=== PATIENT | female | born 1955 | race Caucasian/White ===

== ENCOUNTER → 2018-09-13 | Outpatient (CLI) | payer MEDICARE, OTHER ==
[~2018-09-13] MED LIST: DEXL60CA2 PO; LOSA100T3 PO; METF-480 PO; RANI300T; SITA100T11 PO; [UNRECOGNIZED DRUG - CODE] PO
== END | disposition home or self-care (01) ==
LOC: NUC 09:20
PROVIDERS: ATTEND Family Medicine
DX: E21.3 Hyperparathyroidism, unspecified (principal)
CPT/HCPCS: 78070; A9500

== ENCOUNTER 2018-10-18 11:04 | Day surgery (SDC) | payer MEDICARE, OTHER ==
[~2018-10-18] VITALS: Ht 152.4 cm; Wt 95.7 kg
[2018-10-18] MEDS ORDERED: OMEPRAZOLE (12:17)
[2018-10-18 12:24] VITALS: Ht 152.4 cm; Wt 95.7 kg
--- NOTE | 2018-10-18 12:40 | PREAC ---
Date/Time of Note Date/Time of Note DATE: 10/18/18 TIME: 12:39 Anesthesia Eval and Record Evaluation Time Pre-Procedure Interview DATE: 10/18/18 TIME: 12:39 Age 63 Sex female NPO: 8 hrs Preoperative diagnosis REFLUX ESOPHAGITIS Planned procedure EGD WITH BIOPSIES Past Medical History Past Medical History: Includes Cardio: HTN Endo: Diabetes Pulm: Asthma GI: GERD, Morbid obesity Surgery & Anesthesia Issues No known issue Meds Anticoagulation: No Beta [place] within 24 hr: No Reason Beta [place] not given: Pt. not on B-D[place] Reported Medications [Omeprazole] No Conflict Check 10/18/18 Losartan Potassium* (Cozaar*) 100 Mg Tablet, 100 MG PO DAILY 09/02/12 Sitagliptin* (Januvia*) 100 Mg Tablet, 100 MG PO DAILY 09/02/12 Dexlansoprazole (Dexilant) 60 Mg Nikita., 60 MG PO DAILY 09/02/12 Metformin* (Glucophage*) 850 Mg Tablet, 850 MG PO BID 10/09/11 Letrozole* (Femara*) 2.5 Mg Tablet, 2.5 MG PO DAILY 10/09/11 Ranitidine Hcl* (Ranitidine Hcl*) 300 Mg Tablet 06/24/10 Meds reviewed: Yes Allergies Coded Allergies: No Known Allergies (Verified Allergy, Mild, 10/09/11) No Known Drug Allergies (Verified Allergy, Unknown, 10/10/13) Allergies Reviewed: Yes Labs/Studies Labs Reviewed: Reviewed by anesthesiologist test: N/A Pre-procedure Exam Airway: Adequate mouth opening, Adequate thyromental dist Mallampati: Mallampati II Teeth: Normal Lung: Normal Heart: Normal ASA Physical Status ASA physical status: 3 Emergency: None Planned Anesthetic General/MAC: MAC Planned Pain Management Parenteral pain med Pre-operative Attestations Prior to commencing anesthesia and surgery, the patient was re-evaluated, there was verification of: *The patient's identity *The results of appropriate recent lab work and preoperative vital signs *The above evaluation not changing prior to induction *Anesthetic plan, risk benefits, alternative and complications discussed with patient/family; questions answered; patient/family understands, accepts and wishes to proceed. Jacob Llamas M.D. October 18, 2018 12:40
[2018-10-18 12:54] VITALS: BP 123/73; PULSE 67; RESP 18
[2018-10-18] MEDS ORDERED: LIDOCAINE 100 MG SYRINGE ONE (13:16)
[2018-10-18] MEDS ORDERED: PROPOFOL 40 ML ONE (13:16)
[2018-10-18] MEDS ORDERED: FENTAnyl 50 MCG/ML VIAL ONE (13:17)
[2018-10-18 13:58] VITALS: BP 118/74; PULSE 69; RESP 18
--- NOTE | 2018-10-18 14:07 | PAC ---
Date/Time of Note Date/Time of Note DATE: 10/18/18 TIME: 14:07 Post-Anesthesia Notes Post-Anesthesia Note Last documented vital signs Vital Signs Date Temp Pulse Resp B/P (MAP) Pulse Ox O2 O2 Flow FiO2 Time Delivery Rate 10/18/18 69 18 118/74 96 Room Air 13:58 (89) 10/18/18 97.2 12:54 Activity: WNL Respiratory function: WNL Cardiovascular function: WNL Mental status: Baseline Pain reasonably controlled: Yes Hydration appropriate: Yes Nausea/Vomiting absent: Yes Jacob Llamas M.D. October 18, 2018 14:07
== END 2018-10-18 15:55 | disposition home or self-care (01) ==
LOC: GIL 11:04
PROVIDERS: ATTEND Internal Medicine Gastroenterology
DX: K44.9 Diaphragmatic hernia without obstruction or gangrene (principal); K21.9 Gastro-esophageal reflux disease without esophagitis; K29.50 Unspecified chronic gastritis without bleeding; I10 Essential (primary) hypertension; E11.9 Type 2 diabetes mellitus without complications; J45.909 Unspecified asthma, uncomplicated; Z79.84 Long term (current) use of oral hypoglycemic drugs
CPT/HCPCS: 43239; 82962; 88305; 88312; J2001; J3010